=== PATIENT | male | born 1995 | race Caucasian/White ===

== ENCOUNTER → 2019-02-13 | Outpatient (REF) | payer BC ==
[2019-02-13 20:29] LABS: CHLAMYDIA DNA AMPLIFICATION NEGATIVE (NEGATIVE); GC DNA AMPLIFICATION NEGATIVE (NEGATIVE)
== END ==
LOC: M SFHCLERA 12:58
PROVIDERS: ATTEND Nurse Practitioner Family
DX: Z20.2 Contact with and (suspected) exposure to infections with a predominantly sexual mode of transmission (principal)

== ENCOUNTER → 2020-10-03 | Outpatient (CLI) | payer BC ==
--- NOTE | 2020-10-03 11:04 | REPPI ---
INDICATION: CONSTIPATION. COMPARISON: None. TECHNIQUE: Supine abdomen. FINDINGS: Two views were required to encompass the entirety of the abdomen and pelvis. There is stool and gas in the left and transverse colon without abnormal distention. Scattered amounts of gas in the left colon and sigmoid. Small bowel loops are mostly fluid-filled in the upper abdomen with some distal small bowel loops with scattered gas. No dilated loops. No mass, abnormal calcification or acute bony finding. IMPRESSION: 1. Nonspecific gas pattern without obstruction, mass or radiographic evidence of constipation. Bones unremarkable. No abnormal soft tissue calcification. <Electronically signed by Winston Love > 10/03/20 [id number]
== END ==
LOC: M PLAIMG 10:41
PROVIDERS: ATTEND Physician Assistant
DX: K59.00 Constipation, unspecified (principal)